=== PATIENT | male | born 1965 | race African-American/Black ===

== ENCOUNTER 2016-08-04 10:18 | Emergency (ER) | payer MEDICAID ==
[~2016-08-04] VITALS: Ht 182.9 cm; Wt 74.0 kg
[2016-08-04] MEDS ORDERED: VISCOUS LIDOCAINE 2% 15 ML UDC MM ONE (13:00)
[2016-08-04] MEDS ORDERED: FAMOTIDINE 20MG TABLET PO ONE (13:00)
[2016-08-04] MEDS ORDERED: MAGNESIUM/ALUMINUM HYDROXIDE/SIMETHICONE 30ML UDC PO ONE (13:00)
[2016-08-04] MEDS ORDERED: ONDANSETRON 4MG ODT PO ONE (13:00)
[2016-08-04 14:54] VITALS: BP 121/61
== END 2016-08-04 15:39 | disposition home or self-care (01) ==
LOC: ER 12:11
DX: K29.50 Unspecified chronic gastritis without bleeding (principal); K21.9 Gastro-esophageal reflux disease without esophagitis; G62.9 Polyneuropathy, unspecified; Z88.0 Allergy status to penicillin
CPT/HCPCS: 71120; 99284; Q0162; Z7610

== ENCOUNTER 2017-06-27 14:29 | Emergency (ER) | payer MEDICAID ==
[~2017-06-27] VITALS: Ht 180.3 cm; Wt 73.0 kg
[2017-06-27] MEDS ORDERED: QUET50TA PO (14:48)
[2017-06-27] MEDS ORDERED: HYDR-4009 PO (14:48)
[2017-06-27] MEDS ORDERED: KETOROLAC 30MG/ML VIAL IM ONE (15:30)
[2017-06-27 16:51] VITALS: BP 123/82
== END 2017-06-27 16:53 | disposition home or self-care (01) ==
LOC: ER 15:00
DX: S10.93XA Contusion of unspecified part of neck, initial encounter (principal); S20.229A Contusion of unspecified back wall of thorax, initial encounter; V49.9XXA Car occupant (driver) (passenger) injured in unspecified traffic accident, initial encounter; Y93.89 Activity, other specified; Y92.410 Unspecified street and highway as the place of occurrence of the external cause; F20.9 Schizophrenia, unspecified; Z88.0 Allergy status to penicillin
CPT/HCPCS: 71045; 72040; 96372; 99284; J1885

== ENCOUNTER 2018-08-05 18:07 | Emergency (ER) | payer MEDICAID, OTHER ==
[~2018-08-05] VITALS: Ht 180.3 cm; Wt 74.0 kg
[~2018-08-05 18:07] MED LIST: HYDR-4009 PO; QUET50TA PO
[2018-08-05 18:21] VITALS: BP 131/81
[2018-08-05 19:50] LABS: CLARITY URINE CLEAR (CLEAR); COLOR URINE YELLOW (YELLOW); KETONES URINE TRACE (NEGATIVE); LEUKOCYTE ESTERASE URINE NEGATIVE (NEGATIVE); NITRITE URINE NEGATIVE (NEGATIVE); OCCULT BLOOD URINE NEGATIVE (NEGATIVE); PH URINE 6.5 (4.5-8.0); PROTEIN URINE NEGATIVE (NEGATIVE); SPECIFIC GRAVITY URINE 1.026 (1.005-1.030)
== END 2018-08-05 23:15 | disposition left against medical advice (07) ==
LOC: ER 18:07
DX: N50.812 Left testicular pain (principal); N50.811 Right testicular pain; Z53.21 Procedure and treatment not carried out due to patient leaving prior to being seen by health care provider